=== PATIENT | female | born 1985 | race Caucasian/White ===

== ENCOUNTER 2018-11-03 14:21 | Outpatient (CLI) | payer OTHER, SELFPAY ==
[2018-11-03 16:09] LABS: TSH (W/Ref FT4) 1.62 uIU/mL (0.358-3.74)
== END 2018-11-03 14:41 ==
PROVIDERS: PCP Nurse Practitioner Family; Visit Provider Nurse Practitioner Family
DX: E03.9 Hypothyroidism, unspecified (principal)
CPT/HCPCS: 36415; 84443

== ENCOUNTER 2021-04-16 14:48 | Outpatient (REF) | payer OTHER, SELFPAY ==
--- NOTE | 2021-04-16 14:30 | PAPFT_PTH ---
PATIENT: Deana Travis LOC: [facility] U#:[id number] AGE/SX: 35/F ROOM: RE04/16/[address]: Karen Matson APRN : 1985 BED: DIS: 04/16/2021 SPEC #: [id number] RECD: 04/17/21 12:53 STATUS: ALIRIOJessi REDawit #: [id number] NED: 04/16/21 14:[address]: Karen Matson DEPT: [facility] Cytology RECD BY: Ximena Love Tissues: 1 - CX/ENDOCX FOR PAP SMEARS Procedures: PAP THIN PREP/UVM Screening HPV DNA PROBE Comments: [id number] (CHLAMYDIA/GC)
[2021-04-18 14:43] LABS: Chlamydia Result Negative (Negative); GC Result Negative (Negative)
== END 2021-04-16 14:49 | disposition home or self-care (01) ==
LOC: LBN 14:48
PROVIDERS: PCP Nurse Practitioner Family; Visit Provider Nurse Practitioner Family
DX: Z12.4 Encounter for screening for malignant neoplasm of cervix (principal); Z11.51 Encounter for screening for human papillomavirus (HPV); Z11.3 Encounter for screening for infections with a predominantly sexual mode of transmission; Z87.410 Personal history of cervical dysplasia
CPT/HCPCS: 87491; 87591; 88142; 87624

== ENCOUNTER 2022-06-14 10:04 | Emergency (ER) | payer OTHER, SELFPAY ==
[2022-06-14 10:32] VITALS: BP 137/88; PULSE 101; RESP 16; TEMP 37.1; O2SAT 96
[2022-06-14 12:31] VITALS: RESP 16
--- NOTE | 2022-06-14 12:33 | W.ED.GENAD ---
Discharge Plan Disposition Patient Disposition: HOME Condition: Stable Discharge Details Clinical Impression: Pharyngitis Primary Care Provider: Karen Matson ED Provider: Umer Neves Home Meds and New Rx's Prescriptions: New amoxicillin 500 mg tablet 500 mg PO BID Qty: 20 0RF Continued trazodone 50 mg tablet 50 mg PO HS Qty: 90 1RF ustekinumab 90 mg/mL syringe 90 mg SC Q4W Rx Instructions: [facility] acetaminophen [Mapap Extra Strength] 500 MG tablet 1 tab PO PRN PRN ibuprofen [Advil Liqui-Gel] 200 MG capsule 200 mg PO PRN PRN Discharge Instructions Instructions: Pharyngitis (ED) Additional Instructions: given how red your throat is with the white plaques I am starting you on amoxicillin if not improving this week follow up with your primary care provider if you feel more ill, have severe worsening pain or difficulty swallowing liquids return to the emergency department Medical Decision Making 36 yo female comes in with 3 days of sore throat, ear pain and dry cough. She had a subjective fever on wednesday but none since. She denies travel, dyspnea, chest pain. She arrives stable speaking in full sentences in no distress. She has clear rhinorrhea, normal tm's, her posterior pharynx is erythematous and has exudates, midline uvula, no submandibular swelling, no pain over the hyoid or restricted neck movements, normal swallowing on exam, and normal lung sounds. Her strep test was negative and home covid test negative. Her symptoms and exam are consistent with pharyngitis and given appearance will empirically treat with amoxicillin. no findings on exam to suggest retropharyngeal abscess, peritonsillar abscess or ludwigs. She will f/u with pcp if not improving and return precautions given Differential Diagnosis Differential Diagnosis: strep, covid, pharyngitis HPI General Mode of arrival: ambulatory. Date/Time Provider Initiated Documentation: 06/14/22 11:37. Limitations to Documentation: no limitations. Information obtained by: patient. History of Present Illness 36 year old F presents to the emergency department with the chief complaint of sore throat, described as moderate, Patient started experiencing this day(s) (3) and it has been constant. No relieving factors improve symptom(s), No exacerbating factors reported . Patient notes cough. Patient did receive the following treatments prior to arrival, none Related Data Home Medications Medication Instructions Recorded Confirmed acetaminophen 500 mg tablet (Mapap 1 tab PO PRN PRN 07/15/14 06/14/22 Extra Strength) ibuprofen 200 mg capsule (Advil 200 mg PO PRN PRN 12/08/15 06/14/22 Liqui-Gel) ustekinumab 90 mg/mL subcutaneous 90 mg subcut Q4W 10/01/20 06/14/22 syringe trazodone 50 mg tablet 50 mg PO HS #90 tab-caps 04/16/21 06/14/22 amoxicillin 500 mg tablet 500 mg PO BID #20 tabs 06/14/22 Previous Rx's Medication Instructions Recorded trazodone 50 mg tablet 50 mg PO HS #90 tab-caps 04/16/21 amoxicillin 500 mg tablet 500 mg PO BID #20 tabs 06/14/22 Allergies Allergy/AdvReac Type Severity Reaction Status Date / Time omeprazole [From Prilosec] AdvReac Mild NAUSEA Verified 06/14/22 10:36 General Stated Complaint: GenMedical CARLOZ: 4 Review of Systems All systems reviewed & are unremarkable except as noted in HPI and below Constitutional Constitutional: Denies chills and Denies weakness Eyes Eyes: Denies loss of vision ENT Ears, Nose, Mouth, and Throat: Denies change in voice Cardiovascular Cardiovascular: Denies chest pain Gastrointestinal Gastrointestinal: Denies abdominal pain, Denies nausea and Denies vomiting Musculoskeletal Musculoskeletal: Denies joint swelling Neurologic Neurologic: Denies loss of vision and Denies weakness PFSH All Active Problems (Updated 06/14/22 @ 12:38 by Umer Neves MD) Pharyngitis (Acute) IUD surveillance (Acute) Insomnia (Acute) Crohn's disease of large intestine without complication (Chronic 2005) Followed [facility] [place]. [place] during . Gastroesophageal reflux disease (Chronic 02/20/15) Pepcid Medical History (Updated 06/14/22 @ 12:38 by Umer Neves MD) Ectopic (~2013) s/p L salpingectomy Surgical History (Updated 09/10/21 @ 08:52 by Jeannie Chin RN) History of colonoscopy (~04/26/21) History of unilateral salpingectomy (~09/19/13) 2/2 ectopic ; laparoscopic L salpingectomy for hemoperitoneum Family History Mother Cancer Maternal Grandmother Diabetes Father Hypertension Social History (Updated 04/16/21 @ 14:40 by Karen Matson NP) Smoking/Tobacco Use Status: Never Smoking risk assessment performed?: Yes Alcohol Intake: current Alcohol Intake frequency: a few times a month Drug use: Never Substance use type: does not use Adopted: No Caregiver/Support person: No Household members: children and other Details: 04/2021: one 5-year-old son Housing: house Number of Children: 1 number of grandchildren: 0 Communication Needs: None Education Level: high school current occupation: Field Sales Representative at [employer] Pets and animals: Yes Pets and animals: cat(s), dog(s) and fish Sexually active: Yes Do you think of yourself as: straight/heterosexual Current gender identity: female Other: 04/2021: separate from , going through divorce What is your relationship status?: Panel score (0-1 are the most socially isolated patients): 0 What type of physical activity do you participate in: walking Duration: 30-45 minutes/day Frequency: 3-4 times per week Fela/Anabaptism: None Special fela needs: No Seatbelt use: always Helmet use: Yes Drive intox or ride w/intox special needs bus driver: No Do you feel safe at home: Yes Do you feel safe in your relationship?: Yes History History 2 Para 1 Hx # Term Pregnancies Multiple births Hx # Pregnancies Ectopic pregnancies 1 AB induced Hx Number of Living Children AB spontaneous Exam Const General: no acute distress Orientation: alert HENMT Head: normal to inspection Ears: external ears normal General nose exam: external nose normal Mouth: moist mucous membranes Eyes General: appearance normal, both eyes and all related structures Neck Neck: normal visual inspection Resp Effort & Inspection: normal respiratory effort and able to speak in complete sentences Cardio Rate: regular rate Skin General skin exam: no rashes or lesions noted Neuro General: patient alert and patient oriented x3 Extrem General: normal to inspection Psych Mental Status: mental status grossly normal Course Vital Signs Vital signs: Vital Signs Temperature 37.1 C 06/14/22 10:32 Pulse 101 H 06/14/22 10:32 Respiratory Rate 16 06/14/22 10:32 Blood Pressure 137/88 06/14/22 10:32 Pulse Oximetry 96 06/14/22 10:32 Temperature 37.1 C 06/14/22 10:32 Temperature Source Oral 06/14/22 10:32 Pulse 101 H 06/14/22 10:32 Respiratory Rate 16 06/14/22 12:31 Respiratory Effort Non-Labored 06/14/22 12:31 Respiratory Depth Normal 06/14/22 12:31 Respiratory Pattern Normal 06/14/22 12:31 Blood Pressure 137/88 06/14/22 10:32 Blood Pressure Position Sitting 06/14/22 10:32 Pulse Oximetry 96 06/14/22 10:32 Oxygen Delivery Method Room Air 06/14/22 10:32 Oxygen Flow Rate 0 06/14/22 10:32 Pain Level 6 06/14/22 10:32 Lab/Test Results Lab/Test Results: 06/14/22 10:30 Tonsil - Not Specified Group A Streptococcus Culture - Pending POC Strep Test-RADHA(Rapid) Start: 06/14/22 10:50 Freq: Status: Active Protocol: Document 06/14/22 10:51 TB (Rec: 06/14/22 10:51 TB [id number]) Strep test-RADHA(Rapid)-POC POC-Strep test-RADHA (Rapid) Negative POC-Strep test-RADHA (Rapid) Negative PAWSS Have you Been Recently Intoxicated or Drunk Within the Last 30 days?: No Have you Ever Experienced Previous Episodes of Alcohol Withdrawal?: No Have you ever Experienced Withdrawal Seizures?: No Have you ever Experienced Delirium Tremens(DT)s?: No Have you ever undergone Alcohol Rehabilitation Treatment (i.e, inpt ot outpatient treatment programs)?: No Have you ever Experienced Blackouts?: No Have you ever Combined Alcohol with other Downers within the last 90 days?: No Have you ever Combined Alcohol with any other Substance of Abuse during the last 90 days?: No Positive Blood Alcohol level on Presentation? [PCS.BAL]: No Evidence of Increased Autonomic Activity (i.e. HR>120, tremor, sweating, agitation, nausea)?: No Result: 0
[2022-06-14] MEDS: Dexamethasone 10 MG/ML VIAL PO (12:46)
== END 2022-06-14 12:46 | disposition home or self-care (01) ==
PROVIDERS: Emergency Provider Emergency Medicine; PCP Nurse Practitioner Family
DX: J02.9 Acute pharyngitis, unspecified (principal)
CPT/HCPCS: 87880; 99283; 87081; 99284; J1100

== ENCOUNTER 2023-10-04 04:55 | Outpatient (CLI) | payer OTHER, SELFPAY ==
[2023-10-04 12:26] LABS: Abs Immature Grans 0.01 10^3/uL (0.0-0.06); Absolute Basophil Count 0.07 10^3/uL (0.0-0.2); Absolute Eosinophil Count 0.42 10^3/uL (0.0-0.7); Absolute Lymphocyte Count 2.52 10^3/uL (1.2-3.4); Absolute Monocyte Count 0.58 10^3/uL (0.1-0.8); Absolute Neutrophil Count 2.94 10^3/uL (1.2-6.7); Basophils % 1.1; Eosinophils % 6.4; HCT 43.4 % (36.0-46.0); HGB 14.8 g/dL (11.2-15.7); Immature Grans % 0.2; Lymphocytes % 38.5; MCH 30.9 pg (27.0-33.0); MCHC 34.1 % (32.0-36.0); MCV 91 fL (80-95); MPV 10.9 fL (8.0-11.0); Monocytes % 8.9; Neutrophils % 44.9; Platelet Count 331 10^3/uL (130-400); RBC 4.79 10^6/uL (3.93-5.22); RDW 12.2 % (11.7-14.6); RDW-SD 40.8 fL; WBC 6.54 10^3/uL (4.4-10.8)
[2023-10-04 12:48] LABS: ALT 38 U/L (14-59); AST 23 U/L (15-37); Albumin 3.8 g/dL (3.4-5.0); Alkaline Phosphatase 39 U/L (46-116); Bilirubin, Direct 0.1 mg/dL (0.0-0.2); Bilirubin, Total 0.5 mg/dL (0.2-1.0); C-Reactive Protein 0.55 mg/dL (0.0-0.3); Total Protein 7.3 g/dL (6.4-8.2)
== END 2023-10-04 04:56 | disposition home or self-care (01) ==
LOC: LOS 04:55
PROVIDERS: PCP Nurse Practitioner Family; Visit Provider Internal Medicine Gastroenterology
DX: K50.10 Crohn's disease of large intestine without complications (principal)
CPT/HCPCS: 36415; 80076; 85025; 86140

== ENCOUNTER 2024-09-01 00:12 | Outpatient (CLI) | payer OTHER, SELFPAY ==
--- NOTE | 2024-09-01 06:30 | DI.MAMMO_ITS ---
Exam(s) MAMMO SCREENING EXAM: MAMMO SCREENING CLINICAL HISTORY: screening,z12.39 TECHNIQUE: Bilateral full field digital CC and MLO mammographic images were obtained with 3D tomosyn thesis and utilizing computer aided detection (CAD). COMPARISON: Available for comparison. FINDINGS: Masses/Architectural Distortion: No suspicious nodules are seen. No areas of architectural distortio n are present. Microcalcifications: No suspicious pleomorphic-type are seen. Skin Thickening/Nipple Retraction: None. IMPRESSION: 1. No significant interval change with no specific features of malignancy noted. 2. Unless there is more urgent need, screening mammography is recommended, as per [employer] guidelines. BI-RADS Category 1 - Negative Breast Density - Category B - Scattered areas of fibroglandular density Breast density category C or D implies that the patient has dense breast tissue. Dense breast tissue is very common and is not abnormal but dense breast tissue can make it harder to find cancer on a ma mmogram. Also, dense breast tissue may increase their breast cancer risk. This information about the result of the mammogram report was provided to the patient to raise their awareness. Use this report when you speak with the patient about their risks for breast cancer, which includes their family hist ory. At that time, you may recommend for more screening tests (Ultrasound or MRI) as they might be us eful based on their risk. A negative radiographic report should not delay biopsy if a dominant or clinically suspicious mass is present. Up to ten percent of cancers are not identified on mammography. A negative report may reinforce clinical impression. Adenosis and dense breasts may obscure an underlying neoplasm. False positive reports average 6 to 10%. Patient will receive a letter notifying them of these results.
== END 2024-09-01 00:32 ==
LOC: DI 00:12
PROVIDERS: PCP Nurse Practitioner Adult Health; Visit Provider Nurse Practitioner Adult Health
DX: Z12.31 Encounter for screening mammogram for malignant neoplasm of breast (principal); R92.323 Mammographic fibroglandular density, bilateral breasts
CPT/HCPCS: 77063; 77067

== ENCOUNTER → 2025-09-11 15:56 | Outpatient (CLI) | payer OTHER, SELFPAY ==
--- NOTE | 2025-09-11 08:00 | DI.MAMMO_ITS ---
Exam(s) MAMMO SCREENING EXAM: MAMMO SCREENING CLINICAL HISTORY: screening Z12.39 TECHNIQUE: Mammograms were interpreted according to the usual protocol including computer analysis with CAD system, tomosynthesis and C-view imaging. COMPARISON: 2023 FINDINGS: The breasts are composed of scattered fibroglandular densities, Breast Density category B. No suspicious masses or suspicious microcalcifications are seen. There is now mild bilateral scarring related to bilateral breast reduction. No skin thickening or abnormal axillary lymph nodes are seen. There has been no significant change from prior exams. IMPRESSION: BI-RADS Category 1, Negative mammogram Yearly screening mammography is recommended. Breast Density - Category B - There are scattered areas of fibroglandular density. Breast density Category C or D implies that the patient has dense breast tissue. Dense breast tissue can make it harder to find cancer on a mammogram. Dense breast tissue is also associated with an increased risk of breast cancer. This information about the result of the mammogram report was provided to the patient to raise their awareness. Use this report when you speak with the patient about their risks for breast cancer, which includes their family history. At that time, you may recommend additional screening tests (Ultrasound or MRI) as these tests may add significant information. A negative radiographic report should not delay biopsy if a dominant or clinically suspicious mass is present. Up to ten percent of cancers are not identified on mammography. A negative report may reinforce clinical impression. Adenosis and dense breasts may obscure an underlying neoplasm. False positive reports average 6 to 10%. Patient will receive a letter notifying them of these results.
== END ==
LOC: DI 15:56
PROVIDERS: PCP Nurse Practitioner Adult Health; Visit Provider Nurse Practitioner Adult Health
DX: Z12.31 Encounter for screening mammogram for malignant neoplasm of breast (principal); R92.323 Mammographic fibroglandular density, bilateral breasts
CPT/HCPCS: 77063; 77067